=== PATIENT | male | born 1985 | race Caucasian/White ===

== ENCOUNTER 2017-10-20 14:18 | Inpatient (IN) | payer MEDICAID, SELFPAY ==
[~2017-10-20] VITALS: Ht 180.3 cm; Wt 74.5 kg
[2017-10-20 15:18] LABS: MEAN CORPUSCULAR HEMOGLOBIN 30.1 pg (27.0-33.0); MEAN CORPUSCULAR HGB CONC 32.8 g/dl (32.0-36.5); MEAN CORPUSCULAR VOLUME 91.7 fl (80.0-96.0); PLATELET COUNT, AUTOMATED 285 10^3/uL (150-450); RED CELL DISTRIBUTION WIDTH 12.6 % (11.5-14.5); WHITE BLOOD COUNT 9.4 10^3/uL (4.0-10.0)
[2017-10-20 15:42] LABS: METHADONE URINE NEGATIVE (NEGATIVE)
[2017-10-20 15:54] LABS: ALBUMIN/GLOBULIN RATIO 1.11 (1.00-1.93); ALKALINE PHOSPHATASE 127 U/L (45-117); ALT/SGPT 18 U/L (12-78); ANION GAP 8 MEQ/L (8-16); AST/SGOT 6 U/L (7-37); BILIRUBIN,DIRECT < 0.1 MG/DL (0.0-0.2); BILIRUBIN,TOTAL 0.2 MG/DL (0.2-1.0); BLOOD UREA NITROGEN 15 MG/DL (7-18); CARBON DIOXIDE LEVEL 28 MEQ/L (21-32); CHLORIDE LEVEL 108 MEQ/L (98-107); CREATININE FOR GFR 0.92 MG/DL (0.70-1.30); GLOMERULAR FILTRATION RATE > 60.0 (>60); GLUCOSE, FASTING 108 MG/DL (70-105); POTASSIUM SERUM 4.1 MEQ/L (3.5-5.1); SODIUM LEVEL 144 MEQ/L (136-145); TOTAL PROTEIN 7.6 GM/DL (6.4-8.2)
[2017-10-20] MEDS ORDERED: OLANZapine ORAL DISINTEGRATING TAB 5MG PO PRN (16:45)
[2017-10-20] MEDS ORDERED: ACETAMINOPHEN TAB 650MG DOSE (2X325MG) PO PRN (16:45)
[2017-10-20] MEDS ORDERED: MAALOX 30 ML SUSP *UDC PO PRN (16:45)
[2017-10-20] MEDS ORDERED: traZODone 50 MG TAB PO PRN (16:45)
[2017-10-20] MEDS ORDERED: MOM 30ML SUSPENSION UDC PO PRN (16:45)
[2017-10-20] MEDS ORDERED: hydrOXYzine 50 MG TAB PO PRN (16:45)
[2017-10-20 18:38] VITALS: BP 145/67
[2017-10-20] MEDS: PALIPERIDONE 3 MG ER TAB (INVEGA) PO SCH (21:40)
[2017-10-21 06:39] VITALS: BP 127/60
[2017-10-21] MEDS: PALIPERIDONE 3 MG ER TAB (INVEGA) PO SCH (09:13)
[2017-10-21] MEDS: risperiDONE 1 MG TAB PO SCH ×2 (12:46→22:02)
--- NOTE | 2017-10-21 16:05 | MHHPE ---
DATE OF ADMISSION: 10/20/2017 LEGAL STATUS AT ADMISSION: 9.39 legal status. CHIEF COMPLAINT: "I have Lyme disease". HISTORY OF PRESENT ILLNESS: 32-year-old male without prior psychiatric history admitted to our unit on a 9.39 legal status. According to the record, the patient was brought to the emergency department by his ict help desk officer. The patient was not showing up for his probation appointments. He was found at home not showering he has been released from custodial. Isolating. No eating. Avoiding his family. The patient was talking about "special ability and sensitive hearing", saying that he could hear computer noises, that he could hear and feel his blood be pulled out of his veins. During the interview with me he was talking about binaural noise and being sensitive to noise coming from different directions. The patient up being jailed after an altercation with his brother who has schizophrenia. He did not show for his parole office meetings and he was sent back to custodial for two more months. He was released in August 2017. During the interview today, the patient reports not feeling depressed. The patient says that he has low self-esteem, but is "bad during the winter and comes back at summer time". The patient reports that he cannot sleep at night "I do not feel fatigue". The patient has a descriptions and somatization, explaining why he has Lyme disease. He also said that he felt that he had Lewy-Body dementia but then he says that he maybe does not have this illness. He talks about itchy, burning, tingling in the center of the chest. A burning feeling in my neck. Severe pain in my arms and in my armpits. 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 The patient says that he has been punching the floor to prevent the tingling sensation on his hands. He denies feelings of paranoia. He denies auditory or visual hallucinations in the shape of voices. Denies command auditory hallucinations. 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 PAST MEDICAL HISTORY: The patient is not reliable as is somatizing and coming with theories of different diseases that he may have. PAST PSYCHIATRIC HISTORY: The patient denies any psychiatric problems. This is his first admission to our unit. FAMILY HISTORY: The patient reports his brother has been diagnosed with schizophrenia. SUBSTANCE ABUSE HISTORY: The patient denies any current or past problems with drugs or alcohol. SOCIAL HISTORY: It is difficult to obtain since the patient is very tangential. The patient says that he was raised by his parents and lives with his mother and brother. PSYCHIATRIC REVIEW OF SYMPTOMS: Substance abuse: The patient answers negative to each questionnaires. Anxiety disorder: The patient denies. Panic symptoms/agoraphobia, obsessive-compulsive disorder (OCD), washing hands repeatedly, checking things over and over, eating disorders, 4:54, dieting, use of laxatives, eating in binges: Negative. Cognitive disorder: 5;01 memory, attention, concentration and general information: Negative for cognitive problems. PHYSICAL EXAMINATION: As per physician assistant dean. LABS: CBC within normal limits. CMP is unremarkable, except alkaline phosphatase of 127. UDS is positive for cannabis. Blood alcohol level is negative. MENTAL STATUS EXAM: The patient dressed in [facility]. The patient is cooperative. His speech is soft and monotone. Has poor eye contact. Mood is anxious. Affect is blunted. The patient is oriented to time, place, person and situation. Attention and concentration are fair. The patient reports auditory hallucinations. Denies visual hallucinations. The patient has somatic delusions. Denies paranoid feelings. The patient denies suicidal or homicidal ideation. Judgment and insight is poor. ASSESSMENT: Wisdom I: Unspecified psychotic disorder. Rule out major depression with psychotic features. Rule out substance induced mood disorder. Rule out substance induced psychosis. Wisdom II: Deferred. Wisdom III: None acute. INITIAL TREATMENT PLAN: The patient was admitted on a 9.39 legal status. Complete history of obtained. With his permission, the family will be contacted and data base will be expanded. His medication regime will be reviewed and changed accordingly. He will be provided with protected environment. He will be treated with individual, group and milieu therapy. He will also receive psychoeducation. Discharge planning will commence immediately. Length of stay will be between 7 and 10 days. Outpatient followup will be strongly recommended. The treatment plan will focus initially on altered thoughts, altered perceptions, self-care deficit.
[2017-10-21 18:00] VITALS: BP 133/59
[2017-10-21] MEDS ORDERED: QUEtiapine FUMARATE 100 MG TAB PO SCH (21:00)
[2017-10-22 06:40] VITALS: BP 128/74
[2017-10-22] MEDS: risperiDONE 1 MG TAB PO SCH ×2 (08:10→21:44)
--- NOTE | 2017-10-22 11:51 | MHIPNPDOC ---
[facility] Progress Note Progress Note DATE OF SERVICE: 10/22/17 HISTORY: Patient states that he wakes up several times throughout the night, having "dreams" of voices. Denies CAH, denies SI/HI intent and plan. Did not endorse feeling depressed, did not endorse hyperactivity, hyperverbality, or elation. Patient states that he has telepathic abilities, believes he can hear electricity, admits that these perceptions confused him but he does not believe it is schizophrenia. Patient has had these symptoms for 3 years but has never sought treatment. Denies AVH, denies paranoia, denies delusions. Patient states he was not showering or taking care of himself at home, which alarmed his textile technical officer, who requested to bring him into the hospital. 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 Brother has schizophrenia. Incarcerated for violating probation, for assaulting brother. MJ several times a month, abused ETOH until age 27. Lives with mother and brother. VITAL SIGNS: See below. NEW TEST RESULTS: NA CURRENT MEDICATIONS: See below. MENTAL STATUS EXAMINATION: Behavior: calm, cooperative, intermittent eye contact Speech: normal RRV, restricted tone Thought processes including: linear Thought content: appropriate to conversation Judgment: fair Insight: poor Orientation: grossly oriented Mood: OK. Affect: neutral, restricted range DIAGNOSES: 1. schizophrenia ASSESSMENT Patient appears to have a mild schizophrenia, with mildly disorganized behaviors , some negative symptoms (lack of volition), delusions, and psychotic perceptions. MANAGEMENT PLAN: - Continue risperdal 1 mg BID for psychosis - PRNs: tylenol, MOM, mylanta, trazodone - Haldol 5 mg po q6 PRN for agitation TIME SPENT: 25 minutes. Vital Signs Vital Signs Date Time Temp Pulse Resp B/P (MAP) Pulse Ox O2 Delivery O2 Flow Rate FiO2 10/22/17 06:40 98.6 100 16 128/74 (92) 10/21/17 09:54 Room Air 10/20/17 18:38 99 Current Medications Current Medications Acetaminophen (Tylenol Tab) 650 mg Q6HP PRN PO HEADACHE or DISCOMFORT; Start 10/20/17 at 16:45; Stop 11/19/17 at 16:44 Al Hydrox/Mg Hydrox/Simethicone (Mylanta) 30 ml Q4HP PRN PO HEARTBURN/ INDIGESTION; Start 10/20/17 at 16:45; Stop 11/19/17 at 16:44 Home Med (Med Rec Complete!) ASDIRECTED XX ; Start 10/20/17 at 17:00; Stop 10/20/17 at 17:00; Status DC Hydroxyzine HCl (Atarax) 50 mg Q6HP PRN PO ANXIETY; Start 10/20/17 at 16:45; Stop 11/19/17 at 16:44 Magnesium Hydroxide (Milk Of Magnesia) 30 ml DAILYPRN PRN PO CONSTIPATION; Start 10/20/17 at 16:45; Stop 11/19/17 at 16:44 Olanzapine (ZyPREXA ZYDIS) 5 mg Q4HP PRN PO AGITATION; Start 10/20/17 at 16 :45; Stop 11/19/17 at 16:44 Paliperidone (Invega) 3 mg BID PO Last administered on 10/21/17 09:13; Start 10/20/17 at 21:00; Stop 10/21/17 at 11:23; Status DC Quetiapine Fumarate (SEROquel) 100 mg QHS PO Last administered on 10/21/17 22: 02; Start 10/21/17 at 21:00; Stop 11/20/17 at 20:59 Risperidone (RisperDAL) 1 mg BID PO Last administered on 10/22/17 08:10; Start 10/21/17 at 09:00; Stop 11/20/17 at 08:59 Trazodone HCl (Desyrel) 50 mg QHSP PRN PO INSOMNIA; Start 10/20/17 at 16:45; Stop 11/19/17 at 16:44 Allergies Coded Allergies: FRUIT (Verified Allergy, Mild, mouth itching, 10/20/17) EDNA POWELL MD Oct 22, 2017 11:51
[2017-10-22] MEDS ORDERED: HALOPERIDOL 5 MG TAB PO PRN (12:00)
[2017-10-22 18:00] VITALS: BP 145/71
[2017-10-23 06:50] VITALS: BP 124/68
[2017-10-23] MEDS: risperiDONE 1 MG TAB PO SCH ×2 (08:11→20:24)
--- NOTE | 2017-10-23 09:17 | MHIPNPDOC ---
[facility] Progress Note Progress Note DATE OF SERVICE: 10/23/17 HISTORY: Patient states that he is tolerating the risperdal without side effects. States that his level of psychotic perceptions is about the same ( perceptions of being able to hear electricity or have telepathic abilities). Patient wakes up intermittently throughout the night due to noise on the unit. Did not endorse depression, SI intent and plan. Patient complains of joint pain in different joints, gives history of knee joint swelling up, makes several remarks about how he believes he has Lyme disease. VITAL SIGNS: See below. NEW TEST RESULTS: NA CURRENT MEDICATIONS: See below. MENTAL STATUS EXAMINATION: Behavior: cooperative, calm, moderate eye contact Speech: quiet, restricted tone, normal rate Thought processes including: linear Thought content: appropriate to conversation Judgment: fair Insight: fair Orientation: AAOX3 Mood: OK Affect: neutral, restricted range DIAGNOSES: 1. schizophrenia ASSESSMENT Patient appears to have a mild schizophrenia, with mildly disorganized behaviors , some negative symptoms (lack of volition), delusions, and psychotic perceptions. Will see whether patient's symptoms mitigate with risperdal. MANAGEMENT PLAN: - Continue risperdal 1 mg BID for psychosis - Lyme disease screen - PRNs: tylenol, MOM, mylanta, trazodone - Haldol 5 mg po q6 PRN for agitation TIME SPENT: 25 minutes. Vital Signs Vital Signs Date Time Temp Pulse Resp B/P (MAP) Pulse Ox O2 Delivery O2 Flow Rate FiO2 10/23/17 08:36 Room Air 10/23/17 06:50 98.1 72 16 124/68 (86) 10/20/17 18:38 99 Current Medications Current Medications Acetaminophen (Tylenol Tab) 650 mg Q6HP PRN PO HEADACHE or DISCOMFORT; Start 10/20/17 at 16:45; Stop 11/19/17 at 16:44 Al Hydrox/Mg Hydrox/Simethicone (Mylanta) 30 ml Q4HP PRN PO HEARTBURN/ INDIGESTION; Start 10/20/17 at 16:45; Stop 11/19/17 at 16:44 Haloperidol (Haldol) 5 mg Q6HP PRN PO AGITATION; Start 10/22/17 at 12:00; Stop 11/21/17 at 11:59 Home Med (Med Rec Complete!) ASDIRECTED XX ; Start 10/20/17 at 17:00; Stop 10/20/17 at 17:00; Status DC Hydroxyzine HCl (Atarax) 50 mg Q6HP PRN PO ANXIETY; Start 10/20/17 at 16:45; Stop 11/19/17 at 16:44 Magnesium Hydroxide (Milk Of Magnesia) 30 ml DAILYPRN PRN PO CONSTIPATION; Start 10/20/17 at 16:45; Stop 11/19/17 at 16:44 Olanzapine (ZyPREXA ZYDIS) 5 mg Q4HP PRN PO AGITATION; Start 10/20/17 at 16 :45; Stop 10/22/17 at 11:50; Status DC Paliperidone (Invega) 3 mg BID PO Last administered on 10/21/17 09:13; Start 10/20/17 at 21:00; Stop 10/21/17 at 11:23; Status DC Quetiapine Fumarate (SEROquel) 100 mg QHS PO Last administered on 10/21/17 22: 02; Start 10/21/17 at 21:00; Stop 10/22/17 at 11:50; Status DC Risperidone (RisperDAL) 1 mg BID PO Last administered on 10/23/17 08:11; Start 10/21/17 at 09:00; Stop 11/20/17 at 08:59 Trazodone HCl (Desyrel) 50 mg QHSP PRN PO INSOMNIA; Start 10/20/17 at 16:45; Stop 11/19/17 at 16:44 Allergies Coded Allergies: FRUIT (Verified Allergy, Mild, mouth itching, 10/20/17) EDNA POWELL MD Oct 23, 2017 09:17
--- NOTE | 2017-10-23 11:39 | HPE ---
DATE OF ADMISSION: 10/20/2017 Please refer to the psychiatric history and evaluation for further details on this admission. This examination and history is intended for medical issues which may need treatment, followup or consultation on this 32-year-old male. ALLERGIES: FRUIT. PRIMARY CARE PROVIDER: He has none currently. SOCIAL HISTORY: Single. He drinks about once a month. Smokes - one pack of cigarettes per day. Recreational drug use - none. PAST MEDICAL HISTORY: Negative. PAST SURGICAL HISTORY: Negative. HOME MEDICATIONS: None. LABORATORY STUDIES: CBC was normal. Sodium 144, potassium 4.1, chloride 108, CO2 28, BUN 15, creatinine 0.9. Urine was positive for marijuana. FAMILY HISTORY: Noncontributory. REVIEW OF SYSTEMS: Ten systems review was done and his only complaint was a plantar wart in the middle of his left foot. PHYSICAL EXAMINATION: 32-year-old cooperative male in no acute distress. Height 71 inches. Weight 74.5 kg. Body mass index (BMI) 22.9. Blood pressure 128/74. Pulse 78. Respirations 16. Temperature 98.6. The patient is alert and oriented times three. Pupils equal and react to light. Extraocular movements intact. Cornea and sclera clear. Conjunctiva normal. No facial asymmetry. Pharynx, tongue and gums pink and moist. Tongue is midline. Neck is supple, without lymphadenopathy. No thyromegaly. No goiter. Carotids 2+, without bruit. Chest clear to auscultation, without wheeze or retraction. Heart is regular. Abdomen benign. Bowel sounds positive. Genitourinary ()/Rectal: Not done. Extremities show equal strength, full range of motion. No cyanosis, clubbing or edema. Peripheral pulses equal and palpable bilaterally. Skin is warm and dry. Large plantar wart noted in the ball of the left foot. IMPRESSION AND PLAN: 1. Psychiatric. Plan per psychiatry. 2. Patient will need to be set up with a primary care provider for followup as an outpatient. 3. Baseline electrocardiogram (EKG) will be ordered.
[2017-10-23 18:00] VITALS: BP 144/62
[2017-10-24 06:00] VITALS: BP 138/77
--- NOTE | 2017-10-24 08:25 | REP ---
MRI brain without contrast: History: First psychotic episode . Comparison study: No comparison study. Technique: Axial and sagittal imaging planes are utilized for T1 and T2-weighted scans. Sequences include spin-echo, fast spin echo, FLAIR, and diffusion weighted sequences. MRI findings: No bony calvarial lesion is seen. Craniocervical junction and upper cervical cord are normal in appearance. There is no MR evidence of significant paranasal sinus disease. No intraorbital abnormality is seen. The lateral, third, and fourth ventricles are normal in size and position. Dewey-white differentiation pattern is intact above and below the tentorium. There is no evidence of intracranial hemorrhage. No mass, infarction, extra-axial fluid collection or midline shift is seen. No abnormal white matter lesion is seen. Impression: Negative noncontrast brain MRI study. Signed by Barrera May MD 10/24/2017 08:17 A
[2017-10-24] MEDS: risperiDONE 1 MG TAB PO SCH (08:49)
--- NOTE | 2017-10-24 12:18 | MHIPNPDOC ---
[facility] Progress Note Progress Note DATE OF SERVICE: 10/24/17 HISTORY: Patient states that he still has the perception that he can hear electronics. Denies AVH, paranoia, and SI intent and plan. States that he has been feeling slightly more motivated than admission, has been showering, grooming, and eating. VITAL SIGNS: See below. NEW TEST RESULTS: pending Lyme screen CURRENT MEDICATIONS: See below. MENTAL STATUS EXAMINATION: Behavior: calm, cooperative, related but withdrawn Speech: normal RRVT Thought processes including: linear Thought content: appropriate to conversation Judgment: fair Insight: fair Orientation: AAOX3 Mood: OK. Affect: neutral, restricted range DIAGNOSES: 1. schizophrenia ASSESSMENT Patient appears to have a mild schizophrenia, improving disorganized behaviors and negative symptoms (lack of volition), delusions, and psychotic perceptions. Will see whether patient's symptoms mitigate with risperdal. MANAGEMENT PLAN: - Increase risperdal to 1 mg qam 2 mg qhs for psychosis - Lyme disease screen pending - PRNs: tylenol, MOM, mylanta, trazodone - Haldol 5 mg po q6 PRN for agitation TIME SPENT: 25 minutes. Vital Signs Vital Signs Date Time Temp Pulse Resp B/P (MAP) Pulse Ox O2 Delivery O2 Flow Rate FiO2 10/24/17 06:00 98.0 64 14 138/77 (97) 10/23/17 08:36 Room Air 10/20/17 18:38 99 Current Medications Current Medications Acetaminophen (Tylenol Tab) 650 mg Q6HP PRN PO HEADACHE or DISCOMFORT; Start 10/20/17 at 16:45; Stop 11/19/17 at 16:44 Al Hydrox/Mg Hydrox/Simethicone (Mylanta) 30 ml Q4HP PRN PO HEARTBURN/ INDIGESTION; Start 10/20/17 at 16:45; Stop 11/19/17 at 16:44 Haloperidol (Haldol) 5 mg Q6HP PRN PO AGITATION; Start 10/22/17 at 12:00; Stop 11/21/17 at 11:59 Home Med (Med Rec Complete!) ASDIRECTED XX ; Start 10/20/17 at 17:00; Stop 10/20/17 at 17:00; Status DC Hydroxyzine HCl (Atarax) 50 mg Q6HP PRN PO ANXIETY; Start 10/20/17 at 16:45; Stop 11/19/17 at 16:44 Magnesium Hydroxide (Milk Of Magnesia) 30 ml DAILYPRN PRN PO CONSTIPATION; Start 10/20/17 at 16:45; Stop 11/19/17 at 16:44 Olanzapine (ZyPREXA ZYDIS) 5 mg Q4HP PRN PO AGITATION; Start 10/20/17 at 16 :45; Stop 10/22/17 at 11:50; Status DC Paliperidone (Invega) 3 mg BID PO Last administered on 10/21/17 09:13; Start 10/20/17 at 21:00; Stop 10/21/17 at 11:23; Status DC Quetiapine Fumarate (SEROquel) 100 mg QHS PO Last administered on 10/21/17 22: 02; Start 10/21/17 at 21:00; Stop 10/22/17 at 11:50; Status DC Risperidone (RisperDAL) 1 mg BID PO Last administered on 10/24/17 08:49; Start 10/21/17 at 09:00; Stop 11/20/17 at 08:59 Trazodone HCl (Desyrel) 50 mg QHSP PRN PO INSOMNIA; Start 10/20/17 at 16:45; Stop 11/19/17 at 16:44 Allergies Coded Allergies: FRUIT (Verified Allergy, Mild, mouth itching, 10/20/17) EDNA POWELL MD Oct 24, 2017 12:18
[2017-10-24 18:00] VITALS: BP 123/60
[2017-10-24] MEDS: risperiDONE 2 MG TAB PO SCH (21:00)
--- NOTE | 2017-10-25 01:20 | ECGEPIP ---
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
[2017-10-25 07:00] VITALS: BP 143/73
[2017-10-25] MEDS: risperiDONE 1 MG TAB PO SCH (08:20)
[2017-10-25 18:20] VITALS: BP 152/70
[2017-10-25] MEDS: risperiDONE 2 MG TAB PO SCH (21:12)
[2017-10-26 00:10] LABS: Lyme Disease IgG/IgM Antibodie <0.91 ISR (0.00-0.90); Lyme Disease IgM Ab Quantitati <0.80 index (0.00-0.79)
[2017-10-26 06:43] VITALS: BP 133/63
[2017-10-26] MEDS: risperiDONE 1 MG TAB PO SCH (08:30)
--- NOTE | 2017-10-26 14:48 | MHIPNPDOC ---
[facility] Progress Note Progress Note DATE OF SERVICE: 10/26/17 HISTORY: Patient states that he still has auditory perceptions of hearing electricity through the wires, though they are not as pronounced as before admission. Patient states the increased dose of risperdal makes him a little sleepy, denies feeling his AH being any different since he was on 1 mg. Patient states in the past he has had VH of things waving around. Denies current VH. States his mood is a little depressed from being in the hospital, did not endorse SI intent and plan. VITAL SIGNS: See below. NEW TEST RESULTS: NA CURRENT MEDICATIONS: See below. MENTAL STATUS EXAMINATION: Behavior: calm, cooperative, related but withdrawn Speech: normal RRVT Thought processes including: linear Thought content: appropriate to conversation Judgment: fair Insight: fair Orientation: AAOX3 Mood: a little depressed. Affect: dysthymic, restricted range DIAGNOSES: 1. schizophrenia ASSESSMENT Patient appears to have a mild schizophrenia, improving disorganized behaviors and negative symptoms (lack of volition), delusions, and psychotic perceptions. Patient does not present any differently when on 2 mg vs 3 mg total per day. MANAGEMENT PLAN: - Decrease risperdal to 2 mg qhs for psychosis, begin zyprexa 5 mg qhs - Lyme disease screen negative - PRNs: tylenol, MOM, mylanta, trazodone - Haldol 5 mg po q6 PRN for agitation TIME SPENT: 25 minutes. Vital Signs Vital Signs Date Time Temp Pulse Resp B/P (MAP) Pulse Ox O2 Delivery O2 Flow Rate FiO2 10/26/17 08:15 Room Air 10/26/17 06:43 98.5 65 18 133/63 (86) 10/20/17 18:38 99 Current Medications Current Medications Acetaminophen (Tylenol Tab) 650 mg Q6HP PRN PO HEADACHE or DISCOMFORT; Start 10/20/17 at 16:45; Stop 11/19/17 at 16:44 Al Hydrox/Mg Hydrox/Simethicone (Mylanta) 30 ml Q4HP PRN PO HEARTBURN/ INDIGESTION; Start 10/20/17 at 16:45; Stop 11/19/17 at 16:44 Haloperidol (Haldol) 5 mg Q6HP PRN PO AGITATION; Start 10/22/17 at 12:00; Stop 11/21/17 at 11:59 Home Med (Med Rec Complete!) ASDIRECTED XX ; Start 10/20/17 at 17:00; Stop 10/20/17 at 17:00; Status DC Hydroxyzine HCl (Atarax) 50 mg Q6HP PRN PO ANXIETY; Start 10/20/17 at 16:45; Stop 11/19/17 at 16:44 Magnesium Hydroxide (Milk Of Magnesia) 30 ml DAILYPRN PRN PO CONSTIPATION; Start 10/20/17 at 16:45; Stop 11/19/17 at 16:44 Olanzapine (ZyPREXA ZYDIS) 5 mg Q4HP PRN PO AGITATION; Start 10/20/17 at 16 :45; Stop 10/22/17 at 11:50; Status DC Paliperidone (Invega) 3 mg BID PO Last administered on 10/21/17 09:13; Start 10/20/17 at 21:00; Stop 10/21/17 at 11:23; Status DC Quetiapine Fumarate (SEROquel) 100 mg QHS PO Last administered on 10/21/17 22: 02; Start 10/21/17 at 21:00; Stop 10/22/17 at 11:50; Status DC Risperidone (RisperDAL) 1 mg BID PO Last administered on 10/24/17 08:49; Start 10/21/17 at 09:00; Stop 10/24/17 at 12:14; Status DC Risperidone (RisperDAL) 1 mg DAILY PO Last administered on 10/26/17 08:30; Start 10/25/17 at 09:00; Stop 11/24/17 at 08:59 Risperidone (RisperDAL) 2 mg QHS PO Last administered on 10/25/17 21:12; Start 10/24/17 at 21:00; Stop 11/23/17 at 20:59 Trazodone HCl (Desyrel) 50 mg QHSP PRN PO INSOMNIA; Start 10/20/17 at 16:45; Stop 11/19/17 at 16:44 Allergies Coded Allergies: FRUIT (Verified Allergy, Mild, mouth itching, 10/20/17) EDNA POWELL MD Oct 26, 2017 14:48
[2017-10-26 18:00] VITALS: BP 108/61
[2017-10-26] MEDS: OLANZapine 5 MG TAB PO SCH (20:02)
[2017-10-26] MEDS: risperiDONE 2 MG TAB PO SCH (20:02)
[2017-10-27 06:58] VITALS: BP 146/62
--- NOTE | 2017-10-27 13:13 | MHIPNPDOC ---
[facility] Progress Note Progress Note DATE OF SERVICE: 10/27/17 HISTORY: Patient still having abnormal perceptions of "hearing electricity", reports not change in symptoms since being on risperdal 2 mg qhs. Patient further mentions a nightly feeling a pain all over his body, unable to characterize, somewhat of a dull, nerve pain. Patient is unsure whether the pain is real or a part of his psychosis. Patient states that at night he would wake up from this, but the zyprexa last night allowed him to sleep throughout the entire night without the feeling of pain. Did not endorse depression. VITAL SIGNS: See below. NEW TEST RESULTS: NA CURRENT MEDICATIONS: See below. MENTAL STATUS EXAMINATION: Behavior: calm, cooperative, related but withdrawn Speech: normal RRVT Thought processes including: linear Thought content: appropriate to conversation Judgment: fair Insight: fair Orientation: AAOX3 Mood: OK. Affect: dysthymic, restricted range DIAGNOSES: 1. schizophrenia ASSESSMENT Patient's disorganized behaviors have largely been resolve with medication, but he is still having abnormal, psychotic perceptions. MANAGEMENT PLAN: - Decrease risperdal to 1 mg qhs for psychosis, Increase zyprexa to 5 mg BID - PRNs: tylenol, MOM, mylanta, trazodone - Haldol 5 mg po q6 PRN for agitation TIME SPENT: 25 minutes. Vital Signs Vital Signs Date Time Temp Pulse Resp B/P (MAP) Pulse Ox O2 Delivery O2 Flow Rate FiO2 10/27/17 06:58 97.2 62 20 146/62 (90) 10/26/17 08:15 Room Air Current Medications Current Medications Acetaminophen (Tylenol Tab) 650 mg Q6HP PRN PO HEADACHE or DISCOMFORT; Start 10/20/17 at 16:45; Stop 11/19/17 at 16:44 Al Hydrox/Mg Hydrox/Simethicone (Mylanta) 30 ml Q4HP PRN PO HEARTBURN/ INDIGESTION; Start 10/20/17 at 16:45; Stop 11/19/17 at 16:44 Haloperidol (Haldol) 5 mg Q6HP PRN PO AGITATION; Start 10/22/17 at 12:00; Stop 11/21/17 at 11:59 Home Med (Med Rec Complete!) ASDIRECTED XX ; Start 10/20/17 at 17:00; Stop 10/20/17 at 17:00; Status DC Hydroxyzine HCl (Atarax) 50 mg Q6HP PRN PO ANXIETY; Start 10/20/17 at 16:45; Stop 11/19/17 at 16:44 Magnesium Hydroxide (Milk Of Magnesia) 30 ml DAILYPRN PRN PO CONSTIPATION; Start 10/20/17 at 16:45; Stop 11/19/17 at 16:44 Olanzapine (ZyPREXA ZYDIS) 5 mg Q4HP PRN PO AGITATION; Start 10/20/17 at 16 :45; Stop 10/22/17 at 11:50; Status DC Olanzapine (ZyPREXA) 5 mg QHS PO Last administered on 10/26/17 20:02; Start 10/26/17 at 21:00; Stop 11/25/17 at 20:59 Paliperidone (Invega) 3 mg BID PO Last administered on 10/21/17 09:13; Start 10/20/17 at 21:00; Stop 10/21/17 at 11:23; Status DC Quetiapine Fumarate (SEROquel) 100 mg QHS PO Last administered on 10/21/17 22: 02; Start 10/21/17 at 21:00; Stop 10/22/17 at 11:50; Status DC Risperidone (RisperDAL) 1 mg BID PO Last administered on 10/24/17 08:49; Start 10/21/17 at 09:00; Stop 10/24/17 at 12:14; Status DC Risperidone (RisperDAL) 1 mg DAILY PO Last administered on 10/26/17 08:30; Start 10/25/17 at 09:00; Stop 10/26/17 at 14:49; Status DC Risperidone (RisperDAL) 2 mg QHS PO Last administered on 10/26/17 20:02; Start 10/24/17 at 21:00; Stop 11/23/17 at 20:59 Trazodone HCl (Desyrel) 50 mg QHSP PRN PO INSOMNIA; Start 10/20/17 at 16:45; Stop 11/19/17 at 16:44 Allergies Coded Allergies: FRUIT (Verified Allergy, Mild, mouth itching, 10/20/17) EDNA POWELL MD Oct 27, 2017 13:13
[2017-10-27] MEDS ORDERED: OLANZapine 5 MG TAB PO ONE (13:30)
[2017-10-27 18:00] VITALS: BP 121/60
[2017-10-27] MEDS ORDERED: risperiDONE 1 MG TAB PO SCH (21:00)
[2017-10-27] MEDS: OLANZapine 5 MG TAB PO SCH (21:06)
[2017-10-28 06:52] VITALS: BP 133/66
[2017-10-28] MEDS ORDERED: GABAPENTIN 100 MG CAP PO ONE (09:15)
--- NOTE | 2017-10-28 09:19 | MHIPNPDOC ---
[facility] Progress Note Progress Note DATE OF SERVICE: 10/28/17 HISTORY: Patient states that he still has the perceptions of hearing electricity , and describes perceptions of having nerve pain intermittently all across his body (which he has had for a long time but is describing more in detail today). Associates this nerve pain with stress and anxiety. Believes the zyprexa helped him sleep better but thinks his perceptions are at about the same level. Has alright mood, did not endorse SI intent and plan, did not endorse AVH. VITAL SIGNS: See below. NEW TEST RESULTS: na CURRENT MEDICATIONS: See below. CURRENT MEDICATIONS: See below. MENTAL STATUS EXAMINATION: Behavior: calm, cooperative, related but withdrawn Speech: normal RRVT Thought processes including: linear Thought content: appropriate to conversation Judgment: fair Insight: fair Orientation: AAOX3 Mood: alright Affect: dysthymic, restricted range DIAGNOSES: 1. schizophrenia ASSESSMENT Patient's disorganized behaviors have largely been resolve with medication, but he is still having abnormal, psychotic perceptions. His "nerve pain" is likely another psychotic perceptual disturbance, but may be mitigated by reducing his anxiety level. MANAGEMENT PLAN: - Risperdal discontinued for psychosis, Increase zyprexa to 10 mg qhs tomorrow - Began gabapentin 300 mg BID for anxiety, and to see if that decreases his "nerve pain" sensations. - PRNs: tylenol, MOM, mylanta, trazodone - Haldol 5 mg po q6 PRN for agitation TIME SPENT: 25 minutes. Vital Signs Vital Signs Date Time Temp Pulse Resp B/P (MAP) Pulse Ox O2 Delivery O2 Flow Rate FiO2 10/28/17 06:52 97.7 77 12 133/66 (88) 10/26/17 08:15 Room Air Current Medications Current Medications Acetaminophen (Tylenol Tab) 650 mg Q6HP PRN PO HEADACHE or DISCOMFORT; Start 10/20/17 at 16:45; Stop 11/19/17 at 16:44 Al Hydrox/Mg Hydrox/Simethicone (Mylanta) 30 ml Q4HP PRN PO HEARTBURN/ INDIGESTION; Start 10/20/17 at 16:45; Stop 11/19/17 at 16:44 Gabapentin (Neurontin) 300 mg BID PO ; Start 10/28/17 at 21:00; Stop 11/27/17 at 20:59; Status UNV Haloperidol (Haldol) 5 mg Q6HP PRN PO AGITATION; Start 10/22/17 at 12:00; Stop 11/21/17 at 11:59 Home Med (Med Rec Complete!) ASDIRECTED XX ; Start 10/20/17 at 17:00; Stop 10/20/17 at 17:00; Status DC Hydroxyzine HCl (Atarax) 50 mg Q6HP PRN PO ANXIETY; Start 10/20/17 at 16:45; Stop 11/19/17 at 16:44 Magnesium Hydroxide (Milk Of Magnesia) 30 ml DAILYPRN PRN PO CONSTIPATION; Start 10/20/17 at 16:45; Stop 11/19/17 at 16:44 Olanzapine (ZyPREXA ZYDIS) 5 mg Q4HP PRN PO AGITATION; Start 10/20/17 at 16 :45; Stop 10/22/17 at 11:50; Status DC Olanzapine (ZyPREXA) 5 mg QHS PO Last administered on 10/27/17 21:06; Start 10/26/17 at 21:00; Stop 11/25/17 at 20:59 Paliperidone (Invega) 3 mg BID PO Last administered on 10/21/17 09:13; Start 10/20/17 at 21:00; Stop 10/21/17 at 11:23; Status DC Quetiapine Fumarate (SEROquel) 100 mg QHS PO Last administered on 10/21/17 22: 02; Start 10/21/17 at 21:00; Stop 10/22/17 at 11:50; Status DC Risperidone (RisperDAL) 1 mg BID PO Last administered on 10/24/17 08:49; Start 10/21/17 at 09:00; Stop 10/24/17 at 12:14; Status DC Risperidone (RisperDAL) 1 mg DAILY PO Last administered on 10/26/17 08:30; Start 10/25/17 at 09:00; Stop 10/26/17 at 14:49; Status DC Risperidone (RisperDAL) 1 mg QHS PO Last administered on 10/27/17 21:07; Start 10/27/17 at 21:00; Stop 11/26/17 at 20:59 Risperidone (RisperDAL) 2 mg QHS PO Last administered on 10/26/17t 20:02; Start 10/24/17 at 21:00; Stop 10/27/17 at 13:10; Status DC Trazodone HCl (Desyrel) 50 mg QHSP PRN PO INSOMNIA; Start 10/20/17 at 16:45; Stop 11/19/17 at 16:44 Allergies Coded Allergies: FRUIT (Verified Allergy, Mild, mouth itching, 10/20/17) EDNA POWELL MD Oct 28, 2017 09:19
[2017-10-28 18:00] VITALS: BP 130/68
[2017-10-28] MEDS: GABAPENTIN 300 MG CAP PO SCH (20:12)
[2017-10-28] MEDS: OLANZapine 5 MG TAB PO SCH (20:12)
[2017-10-29 06:41] VITALS: BP 140/67
[2017-10-29] MEDS: GABAPENTIN 300 MG CAP PO SCH ×2 (09:50→20:46)
[2017-10-29 18:39] VITALS: BP 128/60
[2017-10-29] MEDS: OLANZapine 10 MG TAB PO SCH (20:46)
[2017-10-30 06:41] VITALS: BP 140/63
[2017-10-30] MEDS: GABAPENTIN 300 MG CAP PO SCH ×2 (09:39→20:58)
[2017-10-30 18:13] VITALS: BP 137/72
[2017-10-30] MEDS: OLANZapine 10 MG TAB PO SCH (20:58)
[2017-10-31 06:43] VITALS: BP 150/75
[2017-10-31] MEDS: GABAPENTIN 300 MG CAP PO SCH (08:05)
--- NOTE | 2017-10-31 17:18 | MHIPNPDOC ---
[facility] Progress Note Progress Note DATE OF SERVICE: 10/31/17 HISTORY: Patient reports good sleep time but had dream that woke him up. Reports feeling about the same with zyprexa compared to risperdal. Continues to have sensation of pains throughout his body. Does not currently report hearing electricity in wires, but heard this yesterday. Patient reports OK mood, did not endorse SI intent and plan. VITAL SIGNS: See below. NEW TEST RESULTS: NA CURRENT MEDICATIONS: See below. MENTAL STATUS EXAMINATION: Behavior: calm, cooperative, related but withdrawn Speech: normal RRVT Thought processes including: linear Thought content: appropriate to conversation Judgment: fair Insight: fair Orientation: AAOX3 Mood: OK Affect: dysthymic, restricted range DIAGNOSES: 1. schizophrenia ASSESSMENT Patient's disorganized behaviors have largely been resolve with medication, but he is still having abnormal, psychotic perceptions. His "nerve pain" is likely another psychotic perceptual disturbance. MANAGEMENT PLAN: - Continue zyprexa 10 mg qhs - Disontinue gabapentin 300 mg BID for anxiety - PRNs: tylenol, MOM, mylanta, trazodone - Haldol 5 mg po q6 PRN for agitation TIME SPENT: 25 minutes. Vital Signs Vital Signs Date Time Temp Pulse Resp B/P (MAP) Pulse Ox O2 Delivery O2 Flow Rate FiO2 10/31/17 06:43 97.7 69 16 150/75 (100) 10/29/17 06:41 Room Air Current Medications Current Medications Acetaminophen (Tylenol Tab) 650 mg Q6HP PRN PO HEADACHE or DISCOMFORT; Start 10/20/17 at 16:45; Stop 11/19/17 at 16:44 Al Hydrox/Mg Hydrox/Simethicone (Mylanta) 30 ml Q4HP PRN PO HEARTBURN/ INDIGESTION; Start 10/20/17 at 16:45; Stop 11/19/17 at 16:44 Gabapentin (Neurontin) 300 mg BID PO Last administered on 10/31/17t 08:05; Start 10/28/17 at 21:00; Stop 11/27/17 at 20:59 Haloperidol (Haldol) 5 mg Q6HP PRN PO AGITATION; Start 10/22/17 at 12:00; Stop 11/21/17 at 11:59 Home Med (Med Rec Complete!) ASDIRECTED XX ; Start 10/20/17 at 17:00; Stop 10/20/17 at 17:00; Status DC Hydroxyzine HCl (Atarax) 50 mg Q6HP PRN PO ANXIETY; Start 10/20/17 at 16:45; Stop 11/19/17 at 16:44 Magnesium Hydroxide (Milk Of Magnesia) 30 ml DAILYPRN PRN PO CONSTIPATION; Start 10/20/17 at 16:45; Stop 11/19/17 at 16:44 Olanzapine (ZyPREXA ZYDIS) 5 mg Q4HP PRN PO AGITATION; Start 10/20/17 at 16 :45; Stop 10/22/17 at 11:50; Status DC Olanzapine (ZyPREXA) 5 mg QHS PO Last administered on 10/28/17 20:12; Start 10/26/17 at 21:00; Stop 10/29/17 at 04:00; Status DC Olanzapine (ZyPREXA) 10 mg QHS PO Last administered on 10/30/17 20:58; Start 10/29/17 at 21:00; Stop 11/28/17 at 20:59 Paliperidone (Invega) 3 mg BID PO Last administered on 10/21/17 09:13; Start 10/20/17 at 21:00; Stop 10/21/17 at 11:23; Status DC Quetiapine Fumarate (SEROquel) 100 mg QHS PO Last administered on 10/21/17 22: 02; Start 10/21/17 at 21:00; Stop 10/22/17 at 11:50; Status DC Risperidone (RisperDAL) 1 mg BID PO Last administered on 10/24/17 08:49; Start 10/21/17 at 09:00; Stop 10/24/17 at 12:14; Status DC Risperidone (RisperDAL) 1 mg DAILY PO Last administered on 10/26/17 08:30; Start 10/25/17 at 09:00; Stop 10/26/17 at 14:49; Status DC Risperidone (RisperDAL) 1 mg QHS PO Last administered on 10/27/17 21:07; Start 10/27/17 at 21:00; Stop 10/28/17 at 09:21; Status DC Risperidone (RisperDAL) 2 mg QHS PO Last administered on 12/13/17at 20:02; Start 10/24/17 at 21:00; Stop 10/27/17 at 13:10; Status DC Trazodone HCl (Desyrel) 50 mg QHSP PRN PO INSOMNIA; Start 10/20/17 at 16:45; Stop 11/19/17 at 16:44 Allergies Coded Allergies: FRUIT (Verified Allergy, Mild, mouth itching, 10/20/17) EDNA POWELL MD Oct 31, 2017 17:18
[2017-10-31 18:00] VITALS: BP 156/67
[2017-10-31] MEDS: OLANZapine 10 MG TAB PO SCH (20:12)
[2017-11-01 06:28] VITALS: BP 140/65
--- NOTE | 2017-11-01 16:38 | MHIPNPDOC ---
[facility] Progress Note Progress Note DATE OF SERVICE: 11/01/17 HISTORY: Patient reports the same level of perceptual disturbances of hearing electricity and sensing body pains. Patient reports OK sleep with zyprexa. Believes the zyprexa helps him sleep better than risperdal but controls his symptoms at about the same level. Did not endorse other psychotic symptoms, OK mood. VITAL SIGNS: See below. NEW TEST RESULTS: NA CURRENT MEDICATIONS: See below. MENTAL STATUS EXAMINATION: Behavior: calm, cooperative, related but withdrawn Speech: normal RRVT Thought processes including: linear Thought content: appropriate to conversation Judgment: fair Insight: fair Orientation: AAOX3 Mood: OK Affect: dysthymic, restricted range DIAGNOSES: 1. schizophrenia ASSESSMENT Patient's disorganized behaviors have largely been resolve with medication, but he is still having abnormal, psychotic perceptions. His "nerve pain" is likely another psychotic perceptual disturbance. MANAGEMENT PLAN: - Continue zyprexa 10 mg qhs - Disontinue gabapentin 300 mg BID for anxiety - PRNs: tylenol, MOM, mylanta, trazodone - Haldol 5 mg po q6 PRN for agitation TIME SPENT: 25 minutes. Vital Signs Vital Signs Date Time Temp Pulse Resp B/P (MAP) Pulse Ox O2 Delivery O2 Flow Rate FiO2 11/01/17 06:28 98.5 67 16 140/65 (90) 10/29/17 06:41 Room Air Current Medications Current Medications Acetaminophen (Tylenol Tab) 650 mg Q6HP PRN PO HEADACHE or DISCOMFORT; Start 10/20/17 at 16:45; Stop 11/19/17 at 16:44 Al Hydrox/Mg Hydrox/Simethicone (Mylanta) 30 ml Q4HP PRN PO HEARTBURN/ INDIGESTION; Start 10/20/17 at 16:45; Stop 11/19/17 at 16:44 Gabapentin (Neurontin) 300 mg BID PO Last administered on 10/31/17t 08:05; Start 10/28/17 at 21:00; Stop 10/31/17 at 17:19; Status DC Haloperidol (Haldol) 5 mg Q6HP PRN PO AGITATION; Start 10/22/17 at 12:00; Stop 11/21/17 at 11:59 Home Med (Med Rec Complete!) ASDIRECTED XX ; Start 10/20/17 at 17:00; Stop 10/20/17 at 17:00; Status DC Hydroxyzine HCl (Atarax) 50 mg Q6HP PRN PO ANXIETY; Start 10/20/17 at 16:45; Stop 11/19/17 at 16:44 Magnesium Hydroxide (Milk Of Magnesia) 30 ml DAILYPRN PRN PO CONSTIPATION; Start 10/20/17 at 16:45; Stop 11/19/17 at 16:44 Olanzapine (ZyPREXA ZYDIS) 5 mg Q4HP PRN PO AGITATION; Start 10/20/17 at 16 :45; Stop 10/22/17 at 11:50; Status DC Olanzapine (ZyPREXA) 5 mg QHS PO Last administered on 10/28/17 20:12; Start 10/26/17 at 21:00; Stop 10/29/17 at 04:00; Status DC Olanzapine (ZyPREXA) 10 mg QHS PO Last administered on 10/31/17 20:12; Start 10/29/17 at 21:00; Stop 11/28/17 at 20:59 Paliperidone (Invega) 3 mg BID PO Last administered on 10/21/17 09:13; Start 10/20/17 at 21:00; Stop 10/21/17 at 11:23; Status DC Quetiapine Fumarate (SEROquel) 100 mg QHS PO Last administered on 10/21/17 22: 02; Start 10/21/17 at 21:00; Stop 10/22/17 at 11:50; Status DC Risperidone (RisperDAL) 1 mg BID PO Last administered on 10/24/17 08:49; Start 10/21/17 at 09:00; Stop 10/24/17 at 12:14; Status DC Risperidone (RisperDAL) 1 mg DAILY PO Last administered on 10/26/17 08:30; Start 10/25/17 at 09:00; Stop 10/26/17 at 14:49; Status DC Risperidone (RisperDAL) 1 mg QHS PO Last administered on 10/27/17 21:07; Start 10/27/17 at 21:00; Stop 10/28/17 at 09:21; Status DC Risperidone (RisperDAL) 2 mg QHS PO Last administered on 12/13/17at 20:02; Start 10/24/17 at 21:00; Stop 10/27/17 at 13:10; Status DC Trazodone HCl (Desyrel) 50 mg QHSP PRN PO INSOMNIA; Start 10/20/17 at 16:45; Stop 11/19/17 at 16:44 Allergies Coded Allergies: FRUIT (Verified Allergy, Mild, mouth itching, 10/20/17) EDNA POWELL MD Nov 01, 2017 16:38
[2017-11-01 18:00] VITALS: BP 128/62
[2017-11-01] MEDS: OLANZapine 10 MG TAB PO SCH (20:10)
[2017-11-02 07:00] VITALS: BP 136/66
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
[2017-11-02] MEDS ORDERED: TRAZO50TA PO (11:37)
[2017-11-02] MEDS ORDERED: OLAN10TA2 PO (11:37)
== END 2017-11-02 14:30 | disposition home or self-care (01) | DRG 751 ==
LOC: M ED 14:18 → M PSY 18:20
PROVIDERS: ADMIT Psychiatry & Neurology Psychiatry; ATTEND Psychiatry & Neurology Psychiatry
DX: F29 Unspecified psychosis not due to a substance or known physiological condition (principal); Z91.018 Allergy to other foods

== ENCOUNTER → 2018-08-16 | Outpatient (REF) | payer OTHER ==
[2018-08-16 14:15] LABS: CHOLESTEROL LEVEL 154 MG/DL (<200); CHOLESTEROL RISK RATIO 3.581 (<5); HDL CHOLESTEROL 43 MG/DL (>40); LDL CHOLESTEROL 85 MG/DL (<100); NON-HDL-C 111 MG/DL; TRIGLYCERIDES LEVEL 128 MG/DL (<150)
[2018-08-16 14:17] LABS: ESTIMATED AVERAGE GLUCOSE 123 MG/DL (60-110); HEMOGLOBIN A1c 5.9 %
== END ==
LOC: M SFHCPLAZ 11:20
DX: F03.90 Unspecified dementia, unspecified severity, without behavioral disturbance, psychotic disturbance, mood disturbance, and anxiety (principal)

== ENCOUNTER 2021-02-20 13:16 | Inpatient (IN) | payer MEDICAID, OTHER, SELFPAY ==
[~2021-02-20] VITALS: Ht 180.3 cm; Wt 65.3 kg
[~2021-02-20 13:16] MED LIST: OLAN10TA2 PO; TRAZ1TAB10 PO
[2021-02-20 13:55] LABS: HEMATOCRIT 39.2 % (42.0-52.0); HEMOGLOBIN 12.3 g/dl (13.5-17.5); MEAN CORPUSCULAR HGB CONC 31.4 g/dl (32.0-36.5); MEAN CORPUSCULAR VOLUME 95.6 fl (80.0-96.0); PLATELET COUNT, AUTOMATED 270 10^3/uL (150-450); WHITE BLOOD COUNT 11.7 10^3/uL (4.0-10.0)
[2021-02-20 14:20] LABS: AMPHETAMINES LEVEL URINE NEGATIVE (NEGATIVE); BARBITURATES URINE NEGATIVE (NEGATIVE); BENZODIAZEPINES URINE NEGATIVE (NEGATIVE); CANNABINOIDS URINE POSITIVE (NEGATIVE); COCAINE METABOLITE URINE NEGATIVE (NEGATIVE); METHADONE URINE NEGATIVE (NEGATIVE); OPIATES URINE NEGATIVE (NEGATIVE); PHENCYCLIDINE URINE NEGATIVE (NEGATIVE)
[2021-02-20 14:31] LABS: ACETAMINOPHEN LEVEL < 2.0 UG/ML (10.0-30.0); ALT/SGPT 27 U/L (12-78); BILIRUBIN,DIRECT 0.1 MG/DL (0.0-0.2); BILIRUBIN,TOTAL 0.3 MG/DL (0.2-1.0); BLOOD UREA NITROGEN 23 MG/DL (7-18); CALCIUM LEVEL 8.8 MG/DL (8.5-10.1); CARBON DIOXIDE LEVEL 18 MEQ/L (21-32); CHLORIDE LEVEL 107 MEQ/L (98-107); CREATININE FOR GFR 0.95 MG/DL (0.70-1.30); ETHYL ALCOHOL (ETHANOL) < 0.003 % (0.000-0.010); GLOMERULAR FILTRATION RATE > 60.0 (>60); GLUCOSE, FASTING 124 MG/DL (70-100); POTASSIUM SERUM 4.2 MEQ/L (3.5-5.1); SALICYLATE LEVEL 3.4 MG/DL (5.0-30.0); SODIUM LEVEL 138 MEQ/L (136-145); TOTAL PROTEIN 6.9 GM/DL (6.4-8.2)
[2021-02-20 15:12] LABS: RSV AMPLIFICATION NEGATIVE (NEGATIVE)
[2021-02-20] MEDS: OLANZapine ORAL DISINTEGRATING TAB 5MG PO ONE ×2 (17:13→17:14)
[2021-02-20] MEDS ORDERED: MOM 30ML SUSPENSION UDC PO PRN (18:25)
[2021-02-20] MEDS ORDERED: traZODone 50 MG TAB PO PRN (18:25)
[2021-02-20] MEDS ORDERED: ACETAMINOPHEN TAB 650MG DOSE (2X325MG) PO PRN (18:25)
[2021-02-20] MEDS ORDERED: MAALOX 30 ML SUSP *UDC PO PRN (18:25)
[2021-02-20] MEDS ORDERED: OLANZapine ORAL DISINTEGRATING TAB 5MG PO PRN (18:25)
[2021-02-20 20:47] VITALS: BP 122/65
[2021-02-21 08:01] VITALS: BP 124/64
[2021-02-21] MEDS: NICOTINE 21MG/24HR 1 EA TRANSDERMAL TD SCH (08:38)
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
--- NOTE | 2021-02-21 15:46 | HPEPDOC ---
General Date of Admission Feb 20, 2021 at 18:25 Date of Service: Feb 21, 2021 Chief Complaint The patient is a 35-year-old male admitted with a reason for visit of Unspecified Psychotic Disorder. Source: Patient Exam Limitations: No limitations History of Present Illness Patient is 35 years old male with past medical history schizophrenia of presents to the hospital with psychosis. The patient reportedly went to the [facility] which is just past a person's property, who called the police. When the police came, he jumped into the river and he was rescued and brought to the hospital. During my interview patient denied fever, chills, nausea, vomiting, chest pain, abdominal pain, diarrhea or dysuria Home Medications No Active Prescriptions or Reported Meds Allergies Coded Allergies: FRUIT (Verified Allergy, Mild, mouth itching, 10/20/17) Past Medical History Medical History schizophrenia Family History I personally reviewed family history and found not pertinent Social History * Smoker: current smoker Alcohol: Denies Drugs: marijuana A-FIB/CHADSVASC A-FIB History Current/History of A-Fib/PAF?: No Current PO Anticoag Therapy: No Review of Systems Constitutional: Denies: Chills, Fever Eyes: Denies: Pain ENT: Denies: Head Aches Skin: Denies: Rash Pulmonary: Denies: Dyspnea Cardiovascular: Denies: Chest Pain Gastrointestinal: Denies: Nausea Genitourinary: Denies: Dysuria Hematologic: Denies: Bruising Endocrine: Denies: Polydipsia Musculoskeletal: Denies: Neck Pain Neurological: Denies: Weakness Psych: Denies: Thoughts of Self Harm Physical Examination General Exam: Positive: Alert, Cooperative Eye Exam: Positive: PERRLA ENT Exam: Positive: Atraumatic Neck Exam: Positive: Supple; Negative: JVD Chest Exam: Positive: Clear to auscultation Heart Exam: Positive: Rate Normal Telemetry: Positive: No significant arrhythmia Abdomen Exam: Positive: Normal bowel sounds Extremity Exam: Negative: Clubbing Skin Exam: Positive: Nl turgor and temperature Neuro Exam: Positive: Strength at 5/5 X4 ext Psych Exam: Positive: Oriented x 3 Vital Signs Vital Signs Date Time Temp Pulse Resp B/P (MAP) Pulse Ox O2 Delivery O2 Flow Rate FiO2 02/21/21 08:06 Room Air 02/21/21 08:01 98.6 63 20 124/64 (84) 99 Assessment/Plan Patient is 35 years old male with past medical history schizophrenia of presents to the hospital with psychosis. The patient reportedly went to the [facility] which is just past a person's property, who called the police. When the police came, he jumped into the river and he was rescued and brought to the hospital. During my interview patient denied fever, chills, nausea, vomiting, chest pain, abdominal pain, diarrhea or dysuria Problems (1) Acute psychosis Status: Acute Problem Text: Secondary to schizophrenia, paranoid type Defer treatment to psych team Plan / VTE VTE Prophylaxis Ordered?: No VTE Exclusion Mechanical Proph: Low Risk for VTE RUBY COX DO Feb 21, 2021 15:46
[2021-02-21 17:00] VITALS: BP 136/61
[2021-02-21] MEDS ORDERED: OLANZapine 5 MG TAB PO SCH ×2 (21:00)
[2021-02-22 06:00] VITALS: BP 107/61
[2021-02-22] MEDS: NICOTINE 21MG/24HR 1 EA TRANSDERMAL TD SCH (09:00)
--- NOTE | 2021-02-22 14:06 | MHIPN ---
[facility] PROGRESS NOTE DATE: 02/22/2021 CHIEF COMPLAINT: "I did not sleep well and I'm tired." SUBJECTIVE: He is a 35-year-old male, unemployed, living with his mother and brother, was admitted because of possible suicidal attempt. He reports that he did not have any suicidal thoughts. He was scared of the police and jumped into the river. Patient has a long history of mental illness. He has been diagnosed with schizophrenia. Currently denies any auditory or visual hallucinations. However, he admits to some delusions, which are bizarre in nature. He reports he can feel the energy in the air, he can feel the forces outside, particularly when he goes near the computer. He reports the internet drains him out. MENTAL STATUS EXAMINATION: Casually dressed. Good personal hygiene. Grooming is good. Made good eye contact. Mood is mildly depressed. Affect is constricted. Psychomotor activity is normal. Thought process: Linear, goal-directed. Thought content: Has some bizarre delusions. Denied any suicidal or homicidal ideas. Perception: Denied any hallucinations. Insight and judgment are limited. Impulse control good. Memory: Immediate, remote, recent are good. VITAL SIGNS: Temperature 97.4, pulse 54, blood pressure 107/61, respiratory rate 16, pulse oximetry 100. MEDICATIONS: - olanzapine 5 mg at bedtime LABORATORY DATA: CMP, CBC within normal limits. Toxicology: Positive for cannabis. DIAGNOSIS: 1. Schizophrenia, paranoid type by history. 2. Rule out delusional disorder. PLAN: Increase Zyprexa to 10 mg at night. ESTIMATED LENGTH OF STAY: 5-6 days. TIME SPENT: 25 minutes.
[2021-02-22] MEDS ORDERED: OLANZapine 10 MG TAB PO SCH (21:00)
[2021-02-23 06:38] VITALS: BP 115/57
[2021-02-23] MEDS: NICOTINE 21MG/24HR 1 EA TRANSDERMAL TD SCH (09:00)
--- NOTE | 2021-02-23 15:44 | MHIPNPDOC ---
[facility] Progress Note Progress Note DATE OF SERVICE: 02/23/21 SUBJECTIVE: "I did not sleep well and I was confused. OBJECTIVE: He is a 35-year-old male, unemployed, living with his mother and brother, was admitted because of possible suicidal attempt. He reports that he did not have any suicidal thoughts. He was scared of the police and jumped into the river. Patient has a long history of mental illness. He has been diagnosed with schizophrenia. Currently denies any auditory or visual hallucinations. However, he admits to some delusions, which are bizarre in nature. He reports he can feel the energy in the air, he can feel the forces outside, particularly when he goes near the computer. He reports the internet drains him out. Reports he had strange feelings that his bed was moving asked if could decrease the dose of Zyprexa. MENTAL STATUS EXAMINATION: Casually dressed. Good personal hygiene. Grooming is good. Made good eye contact. Mood is mildly depressed. Affect is constricted. Psychomotor activity is normal. Thought process: Linear, goal-directed. Thought content: Has some bizarre delusions. Denied any suicidal or homicidal ideas. Perception: Denied any hallucinations. Insight and judgment are limited. Impulse control good. Memory: Immediate, remote, recent are good. MEDICATIONS: Decrease olanzapine 5 mg at bedtime LABORATORY DATA: CMP, CBC within normal limits. Toxicology: Positive for cannabis. DIAGNOSIS: 1. Schizophrenia, paranoid type by history. 2. Rule out delusional disorder. Time spent 25 minutes Estimated length of time 4 to 5 days. Vital Signs Vital Signs Date Time Temp Pulse Resp B/P (MAP) Pulse Ox O2 Delivery O2 Flow Rate FiO2 02/23/21 12:12 Room Air 02/23/21 06:38 97.6 46 12 115/57 (89) 96 Current Medications Current Medications Medications (Trade) Dose Ordered Sig/Rigoberto Route PRN Reason Start Time Stop Time Status Last Admin Dose Admin Acetaminophen (Tylenol Tab) 650 mg Q6HP PRN PO HEADACHE or DISCOMFORT 02/20/21 18:25 Al Hydrox/Mg Hydrox/Simethicone (Mylanta) 30 ml Q4HP PRN PO HEARTBURN/INDIGESTION 02/20/21 18:25 Home Med (Med Rec Complete!) ASDIRECTED XX 02/20/21 16:20 02/20/21 16:20 DC Magnesium Hydroxide (Milk Of Magnesia) 30 ml DAILYPRN PRN PO CONSTIPATION 02/20/21 18:25 Nicotine (Nicoderm Cq 21mg) 1 patch DAILY TD 02/21/21 09:00 Olanzapine (ZyPREXA ZYDIS) 5 mg Q4HP PRN PO AGITATION 02/20/21 18:25 02/21/21 01:54 Olanzapine (ZyPREXA) 5 mg QHS PO 02/21/21 21:00 02/21/21 16:27 DC Olanzapine (ZyPREXA) 5 mg QHS PO 02/21/21 21:00 02/22/21 11:18 DC Olanzapine (ZyPREXA) 5 mg QHS PO 02/23/21 21:00 UNV Olanzapine (ZyPREXA) 10 mg QHS PO 02/22/21 21:00 02/23/21 15:34 DC 02/22/21 20:53 Trazodone HCl (Desyrel) 50 mg QHSP PRN PO INSOMNIA 02/20/21 18:25 Allergies Coded Allergies: FRUIT (Verified Allergy, Mild, mouth itching, 10/20/17) FRANCK CROW MD Feb 23, 2021 15:44
[2021-02-23 16:00] VITALS: BP 125/61
[2021-02-23] MEDS ORDERED: OLANZapine 5 MG TAB PO SCH (21:00)
[2021-02-24 07:00] VITALS: BP 154/80
[2021-02-24] MEDS: NICOTINE 21MG/24HR 1 EA TRANSDERMAL TD SCH (09:00)
--- NOTE | 2021-02-24 15:39 | MHIPNPDOC ---
[facility] Progress Note Progress Note DATE OF SERVICE: 02/24/21 SUBJECTIVE: "I did not sleep well and may be because of decreasing the dose. " I want to give a try on higher dose." OBJECTIVE: He is a 35-year-old male, unemployed, living with his mother and brother, was admitted because of possible suicide attempt. He reports that he did not have any suicidal thoughts. He was scared of the police and jumped into the river. Patient has a long history of mental illness. He has been diagnosed with schizophrenia. Currently denies any auditory or visual hallucinations. However, he admits to some delusions, which are bizarre in nature. He reports he can feel the energy in the air, he can feel the forces outside, particularly when he goes near the computer. He reports the internet drains him out. Reports clouds make him depressed . Pt currently delusional. MENTAL STATUS EXAMINATION: Casually dressed. Good personal hygiene. Grooming is good. Made good eye contact. Mood is mildly depressed. Affect is constricted. Psychomotor activity is normal. Thought process: Linear, goal-directed. Thought content: Has some bizarre delusions. Denied any suicidal or homicidal ideas. Perception: Denied any hallucinations. Insight and judgment are limited. Impulse control good. Memory: Immediate, remote, recent are good. MEDICATIONS: Increase olanzapine 15 mg at bedtime LABORATORY DATA: CMP, CBC within normal limits. Toxicology: Positive for cannabis. DIAGNOSIS: 1. Schizophrenia, paranoid type by history. 2. Rule out delusional disorder. Time spent 25 minutes Estimated length of time 4 to 5 days. Vital Signs Vital Signs Date Time Temp Pulse Resp B/P (MAP) Pulse Ox O2 Delivery O2 Flow Rate FiO2 02/24/21 09:46 Room Air 02/24/21 07:00 98.7 53 18 154/80 (104) 100 Current Medications Current Medications Medications (Trade) Dose Ordered Sig/Rigoberto Route PRN Reason Start Time Stop Time Status Last Admin Dose Admin Acetaminophen (Tylenol Tab) 650 mg Q6HP PRN PO HEADACHE or DISCOMFORT 02/20/21 18:25 Al Hydrox/Mg Hydrox/Simethicone (Mylanta) 30 ml Q4HP PRN PO HEARTBURN/INDIGESTION 02/20/21 18:25 Home Med (Med Rec Complete!) ASDIRECTED XX 02/20/21 16:20 02/20/21 16:20 DC Magnesium Hydroxide (Milk Of Magnesia) 30 ml DAILYPRN PRN PO CONSTIPATION 02/20/21 18:25 Nicotine (Nicoderm Cq 21mg) 1 patch DAILY TD 02/21/21 09:00 Olanzapine (ZyPREXA ZYDIS) 5 mg Q4HP PRN PO AGITATION 02/20/21 18:25 02/21/21 01:54 Olanzapine (ZyPREXA) 5 mg QHS PO 02/21/21 21:00 02/21/21 16:27 DC Olanzapine (ZyPREXA) 5 mg QHS PO 02/21/21 21:00 02/22/21 11:18 DC Olanzapine (ZyPREXA) 5 mg QHS PO 02/23/21 21:00 02/24/21 15:30 DC 02/23/21 20:05 Olanzapine (ZyPREXA) 10 mg QHS PO 02/22/21 21:00 02/23/21 15:34 DC 02/22/21 20:53 Olanzapine (ZyPREXA) 15 mg QHS PO 02/24/21 21:00 UNV Trazodone HCl (Desyrel) 50 mg QHSP PRN PO INSOMNIA 02/20/21 18:25 Allergies Coded Allergies: FRUIT (Verified Allergy, Mild, mouth itching, 10/20/17) FARNCK CROW MD Feb 24, 2021 15:39
[2021-02-24 16:26] VITALS: BP 123/66
[2021-02-24] MEDS: OLANZapine 5 MG TAB PO SCH (20:21)
[2021-02-24] MEDS: CIPRODEX OTIC SUSP 7.5ML AS SCH (20:52)
[2021-02-25 06:10] VITALS: BP 144/65
[2021-02-25] MEDS: NICOTINE 21MG/24HR 1 EA TRANSDERMAL TD SCH (09:00)
[2021-02-25] MEDS: CIPRODEX OTIC SUSP 7.5ML AS SCH ×2 (09:11→21:48)
--- NOTE | 2021-02-25 16:01 | MHIPNPDOC ---
[facility] Progress Note Progress Note DATE OF SERVICE: 02/25/21 SUBJECTIVE: "I did not sleep well and may be because of decreasing the dose. " I want to give a try on higher dose."you can further increase the dose." OBJECTIVE: He is a 35-year-old male, unemployed, living with his mother and brother, was admitted because of possible suicide attempt. He reports that he did not have any suicidal thoughts. He was scared of the police and jumped into the river. Patient has a long history of mental illness. He has been diagnosed with schizophrenia. Currently denies any auditory or visual hallucinations. However, he admits to some delusions, which are bizarre in nature. He reports he can feel the energy in the air, he can feel the forces outside, particularly when he goes near the computer. He reports the internet drains him out. Reports clouds make him depressed . Pt currently delusional. He put tissue in his ear due to some fixed ideas and had to go to ENT for treatment. MENTAL STATUS EXAMINATION: Casually dressed. Good personal hygiene. Grooming is good. Made good eye contact. Mood is mildly depressed. Affect is constricted. Psychomotor activity is normal. Thought process: Linear, goal-directed. Thought content: Has some bizarre delusions. Denied any suicidal or homicidal ideas. Perception: Denied any hallucinations. Insight and judgment are limited. Impulse control good. Memory: Immediate, remote, recent are good. MEDICATIONS: Increase olanzapine 15 mg at bedtime and 5 mg am LABORATORY DATA: CMP, CBC within normal limits. Toxicology: Positive for cannabis. DIAGNOSIS: 1. Schizophrenia, paranoid type by history. 2. Rule out delusional disorder. Time spent 25 minutes Estimated length of time 4 to 5 days. Vital Signs Vital Signs Date Time Temp Pulse Resp B/P (MAP) Pulse Ox O2 Delivery O2 Flow Rate FiO2 02/25/21 09:20 Room Air 02/25/21 06:10 97.0 61 16 144/65 (91) 100 Current Medications Current Medications Medications (Trade) Dose Ordered Sig/Rigoberto Route PRN Reason Start Time Stop Time Status Last Admin Dose Admin Acetaminophen (Tylenol Tab) 650 mg Q6HP PRN PO HEADACHE or DISCOMFORT 02/20/21 18:25 Al Hydrox/Mg Hydrox/Simethicone (Mylanta) 30 ml Q4HP PRN PO HEARTBURN/INDIGESTION 4/9/21 18:25 Ciprofloxacin/ Dexamethasone (Ciprodex Otic) 10 drop BID 02/24/21 21:00 03/03/21 20:59 02/25/21 09:11 Home Med (Med Rec Complete!) ASDIRECTED XX 02/20/21 16:20 02/20/21 16:20 DC Magnesium Hydroxide (Milk Of Magnesia) 30 ml DAILYPRN PRN PO CONSTIPATION 02/20/21 18:25 Nicotine (Nicoderm Cq 21mg) 1 patch DAILY TD 02/21/21 09:00 Olanzapine (ZyPREXA ZYDIS) 5 mg Q4HP PRN PO AGITATION 02/20/21 18:25 02/21/21 01:54 Olanzapine (ZyPREXA) 5 mg QHS PO 02/21/21 21:00 02/21/21 16:27 DC Olanzapine (ZyPREXA) 5 mg QHS PO 02/21/21 21:00 02/22/21 11:18 DC Olanzapine (ZyPREXA) 5 mg QHS PO 02/23/21 21:00 02/24/21 15:30 DC 02/23/21 20:05 Olanzapine (ZyPREXA) 10 mg QHS PO 02/22/21 21:00 02/23/21 15:34 DC 02/22/21 20:53 Olanzapine (ZyPREXA) 15 mg QHS PO 02/24/21 21:00 02/24/21 20:21 Trazodone HCl (Desyrel) 50 mg QHSP PRN PO INSOMNIA 02/20/21 18:25 Allergies Coded Allergies: FRUIT (Verified Allergy, Mild, mouth itching, 10/20/17) FRANCK CROW MD Feb 25, 2021 16:01
[2021-02-25] MEDS: OLANZapine 5 MG TAB PO SCH (20:18)
[2021-02-26 06:27] VITALS: BP 152/76
[2021-02-26] MEDS: NICOTINE 21MG/24HR 1 EA TRANSDERMAL TD SCH (09:00)
[2021-02-26] MEDS: CIPRODEX OTIC SUSP 7.5ML AS SCH ×2 (09:33→22:16)
[2021-02-26] MEDS: OLANZapine 5 MG TAB PO SCH ×2 (09:33→20:49)
--- NOTE | 2021-02-26 12:31 | MHIPNPDOC ---
[facility] Progress Note Progress Note DATE OF SERVICE: 02/26/21 SUBJECTIVE: "I still feel medications don't help me When they were checking vitals I felt electric current passing through me". OBJECTIVE: He is a 35-year-old male, unemployed, living with his mother and brother, was admitted because of possible suicide attempt. He reports that he did not have any suicidal thoughts. He was scared of the police and jumped into the river. Patient has a long history of mental illness. He has been diagnosed with schizophrenia. Currently denies any auditory or visual hallucinations. However, he admits to some delusions, which are bizarre in nature. He reports he can feel the energy in the air, he can feel the forces outside, particularly when he goes near the computer. He reports the internet drains him out. Reports clouds make him depressed . Pt currently delusional. He put tissue in his ear due to some fixed ideas and had to go to ENT for treatment. Continues to have bizarre delusions. MENTAL STATUS EXAMINATION: Casually dressed. Good personal hygiene. Grooming is good. Made good eye contact. Mood is mildly depressed. Affect is constricted. Psychomotor activity is normal. Thought process: Linear, goal-directed. Thought content: Has some bizarre delusions. Denied any suicidal or homicidal ideas. Perception: Denied any hallucinations. Insight and judgment are limited. Impulse control good. Memory: Immediate, remote, recent are good. MEDICATIONS: Increase olanzapine 15 mg at bedtime and 5 mg am LABORATORY DATA: CMP, CBC within normal limits. Toxicology: Positive for cannabis. DIAGNOSIS: 1. Schizophrenia, paranoid type by history. 2. Rule out delusional disorder. Time spent 25 minutes Estimated length of time 4 to 5 days. Vital Signs Vital Signs Date Time Temp Pulse Resp B/P (MAP) Pulse Ox O2 Delivery O2 Flow Rate FiO2 02/26/21 06:27 97.0 61 18 152/76 (101) 98 Room Air Current Medications Current Medications Medications (Trade) Dose Ordered Sig/Rigoberto Route PRN Reason Start Time Stop Time Status Last Admin Dose Admin Acetaminophen (Tylenol Tab) 650 mg Q6HP PRN PO HEADACHE or DISCOMFORT 02/20/21 18:25 Al Hydrox/Mg Hydrox/Simethicone (Mylanta) 30 ml Q4HP PRN PO HEARTBURN/INDIGESTION 02/20/21 18:25 Ciprofloxacin/ Dexamethasone (Ciprodex Otic) 10 drop BID 02/24/21 21:00 03/03/21 20:59 02/26/21 09:33 Home Med (Med Rec Complete!) ASDIRECTED XX 02/20/21 16:20 02/20/21 16:20 DC Magnesium Hydroxide (Milk Of Magnesia) 30 ml DAILYPRN PRN PO CONSTIPATION 02/20/21 18:25 Nicotine (Nicoderm Cq 21mg) 1 patch DAILY TD 02/21/21 09:00 Olanzapine (ZyPREXA ZYDIS) 5 mg Q4HP PRN PO AGITATION 02/20/21 18:25 02/21/21 01:54 Olanzapine (ZyPREXA) 5 mg DAILY PO 02/26/21 09:00 02/26/21 09:33 Olanzapine (ZyPREXA) 5 mg QHS PO 02/21/21 21:00 02/21/21 16:27 DC Olanzapine (ZyPREXA) 5 mg QHS PO 02/21/21 21:00 02/22/21 11:18 DC Olanzapine (ZyPREXA) 5 mg QHS PO 02/23/21 21:00 02/24/21 15:30 DC 02/23/21 20:05 Olanzapine (ZyPREXA) 10 mg QHS PO 02/22/21 21:00 02/23/21 15:34 DC 02/22/21 20:53 Olanzapine (ZyPREXA) 15 mg QHS PO 02/24/21 21:00 02/25/21 20:18 Trazodone HCl (Desyrel) 50 mg QHSP PRN PO INSOMNIA 02/20/21 18:25 Allergies Coded Allergies: FRUIT (Verified Allergy, Mild, mouth itching, 10/20/17) FRANCK CROW MD Feb 26, 2021 12:31
[2021-02-26 18:28] VITALS: BP 149/64
[2021-02-27] MEDS: NICOTINE 21MG/24HR 1 EA TRANSDERMAL TD SCH (09:00)
[2021-02-27] MEDS: OLANZapine 5 MG TAB PO SCH (09:29)
[2021-02-27] MEDS: CIPRODEX OTIC SUSP 7.5ML AS SCH ×2 (09:29→20:57)
--- NOTE | 2021-02-27 15:00 | MHIPNPDOC ---
[facility] Progress Note Progress Note DATE OF SERVICE: 02/27/21 SUBJECTIVE: "I still feel medications don't help me When they were checking vitals I felt electric current passing through me".Forces of energy affecting me. OBJECTIVE: He is a 35-year-old male, unemployed, living with his mother and brother, was admitted because of possible suicide attempt. He reports that he did not have any suicidal thoughts. He was scared of the police and jumped into the river. Patient has a long history of mental illness. He has been diagnosed with schizophrenia. Currently denies any auditory or visual hallucinations. However, he admits to some delusions, which are bizarre in nature. He reports he can feel the energy in the air, he can feel the forces outside, particularly when he goes near the computer. He reports the internet drains him out. Reports clouds make him depressed . Pt currently delusional. He put tissue in his ear due to some fixed ideas and had to go to ENT for treatment. Continues to have bizarre delusions.Agreed for changes of medication MENTAL STATUS EXAMINATION: Casually dressed. Good personal hygiene. Grooming is good. Made good eye contact. Mood is mildly depressed. Affect is constricted. Psychomotor activity is normal. Thought process: Linear, goal-directed. Thought content: Has some bizarre delusions. Denied any suicidal or homicidal ideas. Perception: Denied any hallucinations. Insight and judgment are limited. Impulse control good. Memory: Immediate, remote, recent are good. MEDICATIONS: (Change) Zyprexa 10 mg HS and Risperdal 1 mg HS LABORATORY DATA: CMP, CBC within normal limits. Toxicology: Positive for cannabis. DIAGNOSIS: 1. Schizophrenia, paranoid type by history. 2. Rule out delusional disorder. Time spent 25 minutes Vital Signs Vital Signs Date Time Temp Pulse Resp B/P (MAP) Pulse Ox O2 Delivery O2 Flow Rate FiO2 02/26/21 18:28 96.8 57 18 149/64 (92) 02/26/21 06:27 98 Room Air Current Medications Current Medications Medications (Trade) Dose Ordered Sig/Rigoberto Route PRN Reason Start Time Stop Time Status Last Admin Dose Admin Acetaminophen (Tylenol Tab) 650 mg Q6HP PRN PO HEADACHE or DISCOMFORT 02/20/21 18:25 Al Hydrox/Mg Hydrox/Simethicone (Mylanta) 30 ml Q4HP PRN PO HEARTBURN/INDIGESTION 02/20/21 18:25 Ciprofloxacin/ Dexamethasone (Ciprodex Otic) 10 drop BID 02/24/21 21:00 03/03/21 20:59 02/27/21 09:29 Home Med (Med Rec Complete!) ASDIRECTED XX 02/20/21 16:20 02/20/21 16:20 DC Magnesium Hydroxide (Milk Of Magnesia) 30 ml DAILYPRN PRN PO CONSTIPATION 02/20/21 18:25 Nicotine (Nicoderm Cq 21mg) 1 patch DAILY TD 02/21/21 09:00 Olanzapine (ZyPREXA ZYDIS) 5 mg Q4HP PRN PO AGITATION 02/20/21 18:25 02/21/21 01:54 Olanzapine (ZyPREXA) 5 mg DAILY PO 02/26/21 09:00 02/27/21 09:29 Olanzapine (ZyPREXA) 5 mg QHS PO 02/21/21 21:00 02/21/21 16:27 DC Olanzapine (ZyPREXA) 5 mg QHS PO 02/21/21 21:00 02/22/21 11:18 DC Olanzapine (ZyPREXA) 5 mg QHS PO 02/23/21 21:00 02/24/21 15:30 DC 02/23/21 20:05 Olanzapine (ZyPREXA) 10 mg QHS PO 02/22/21 21:00 02/23/21 15:34 DC 02/22/21 20:53 Olanzapine (ZyPREXA) 10 mg QHS PO 02/27/21 21:00 UNV Olanzapine (ZyPREXA) 15 mg QHS PO 02/24/21 21:00 02/27/21 14:42 DC 02/26/21 20:49 Risperidone (RisperDAL) 1 mg QHS PO 02/27/21 21:00 UNV Trazodone HCl (Desyrel) 50 mg QHSP PRN PO INSOMNIA 02/20/21 18:25 Allergies Coded Allergies: FRUIT (Verified Allergy, Mild, mouth itching, 10/20/17) FRANCK CROW MD Feb 27, 2021 15:00
[2021-02-27 16:12] VITALS: BP 131/63
[2021-02-27] MEDS: OLANZapine 10 MG TAB PO SCH (20:57)
[2021-02-27] MEDS: risperiDONE 1 MG TAB PO SCH (20:57)
[2021-02-28 07:36] VITALS: BP 139/72
[2021-02-28] MEDS: NICOTINE 21MG/24HR 1 EA TRANSDERMAL TD SCH (08:20)
[2021-02-28] MEDS: CIPRODEX OTIC SUSP 7.5ML AS SCH ×2 (08:21→20:56)
[2021-02-28 16:08] VITALS: BP 127/59
[2021-02-28] MEDS: OLANZapine 10 MG TAB PO SCH (20:56)
[2021-02-28] MEDS: risperiDONE 1 MG TAB PO SCH (20:57)
[2021-03-01] MEDS: NICOTINE 21MG/24HR 1 EA TRANSDERMAL TD SCH (08:03)
[2021-03-01] MEDS: CIPRODEX OTIC SUSP 7.5ML AS SCH ×2 (08:03→21:00)
[2021-03-01 09:00] VITALS: BP 149/72
[2021-03-01] MEDS: risperiDONE 1 MG TAB PO SCH (20:28)
[2021-03-01] MEDS: OLANZapine 10 MG TAB PO SCH (20:28)
[2021-03-02 06:23] VITALS: BP 132/62
[2021-03-02] MEDS: NICOTINE 21MG/24HR 1 EA TRANSDERMAL TD SCH (08:39)
[2021-03-02] MEDS: CIPRODEX OTIC SUSP 7.5ML AS SCH ×2 (08:40→21:02)
--- NOTE | 2021-03-02 14:13 | MHIPNPDOC ---
[facility] Progress Note Progress Note DATE OF SERVICE: 03/02/21 SUBJECTIVE: " Medications partially helping me " OBJECTIVE: He is a 35-year-old male, unemployed, living with his mother and brother, was admitted because of possible suicide attempt. He reports that he did not have any suicidal thoughts. He was scared of the police and jumped into the river. Patient has a long history of mental illness. He has been diagnosed with schizophrenia. Currently denies any auditory or visual hallucinations. However, he admits to some delusions, which are bizarre in nature. He reports he can feel the energy in the air, he can feel the forces outside, particularly when he goes near the computer. He reports the internet drains him out. Reports clouds make him depressed . Pt currently delusional. He put tissue in his ear due to some fixed ideas and had to go to ENT for treatment. Continues to have bizarre delusions.Report Risperdal is helping him , but did not want it to be raised. MENTAL STATUS EXAMINATION: Casually dressed. Good personal hygiene. Grooming is good. Made good eye contact. Mood is mildly depressed. Affect is constricted. Psychomotor activity is normal. Thought process: Linear, goal-directed. Thought content: Has some bizarre delusions. Denied any suicidal or homicidal ideas. Perception: Denied any hallucinations. Insight and judgment are limited. Impulse control good. Memory: Immediate, remote, recent are good. MEDICATIONS: Zyprexa 10 mg HS and Risperdal 1 mg HS LABORATORY DATA: CMP, CBC within normal limits. Toxicology: Positive for cannabis. DIAGNOSIS: 1. Schizophrenia, paranoid type by history. 2. Rule out delusional disorder. Pt is stable , though he has some residual delusions.He can be discharged tomorrow. Time spent 25 minutes Vital Signs Vital Signs Date Time Temp Pulse Resp B/P (MAP) Pulse Ox O2 Delivery O2 Flow Rate FiO2 03/02/21 06:23 97.8 94 16 132/62 (85) 98 Room Air Current Medications Current Medications Medications (Trade) Dose Ordered Sig/Rigoberto Route PRN Reason Start Time Stop Time Status Last Admin Dose Admin Acetaminophen (Tylenol Tab) 650 mg Q6HP PRN PO HEADACHE or DISCOMFORT 02/20/21 18:25 Al Hydrox/Mg Hydrox/Simethicone (Mylanta) 30 ml Q4HP PRN PO HEARTBURN/INDIGESTION 02/20/21 18:25 Ciprofloxacin/ Dexamethasone (Ciprodex Otic) 10 drop BID 02/24/21 21:00 03/03/21 20:59 03/02/21 08:40 Home Med (Med Rec Complete!) ASDIRECTED XX 02/20/21 16:20 02/20/21 16:20 DC Magnesium Hydroxide (Milk Of Magnesia) 30 ml DAILYPRN PRN PO CONSTIPATION 02/20/21 18:25 Nicotine (Nicoderm Cq 21mg) 1 patch DAILY TD 02/21/21 09:00 Olanzapine (ZyPREXA ZYDIS) 5 mg Q4HP PRN PO AGITATION 02/20/21 18:25 02/21/21 01:54 Olanzapine (ZyPREXA) 5 mg DAILY PO 02/26/21 09:00 02/27/21 14:45 DC 02/27/21 09:29 Olanzapine (ZyPREXA) 5 mg QHS PO 02/21/21 21:00 02/21/21 16:27 DC Olanzapine (ZyPREXA) 5 mg QHS PO 02/21/21 21:00 02/22/21 11:18 DC Olanzapine (ZyPREXA) 5 mg QHS PO 02/23/21 21:00 02/24/21 15:30 DC 02/23/21 20:05 Olanzapine (ZyPREXA) 10 mg QHS PO 02/22/21 21:00 02/23/21 15:34 DC 02/22/21 20:53 Olanzapine (ZyPREXA) 10 mg QHS PO 02/27/21 21:00 03/01/21 20:28 Olanzapine (ZyPREXA) 15 mg QHS PO 02/24/21 21:00 02/27/21 14:42 DC 02/26/21 20:49 Risperidone (RisperDAL) 1 mg QHS PO 02/27/21 21:00 03/01/21 20:28 Trazodone HCl (Desyrel) 50 mg QHSP PRN PO INSOMNIA 02/20/21 18:25 Allergies Coded Allergies: FRUIT (Verified Allergy, Mild, mouth itching, 10/20/17) FRANCK CROW MD Mar 02, 2021 14:12
[2021-03-02 18:05] VITALS: BP 134/64
[2021-03-02] MEDS: OLANZapine 10 MG TAB PO SCH (21:01)
[2021-03-02] MEDS: risperiDONE 1 MG TAB PO SCH (21:01)
[2021-03-03 07:10] VITALS: BP 134/65
[2021-03-03] MEDS ORDERED: RISP-8 PO (08:00)
[2021-03-03] MEDS ORDERED: OLAN10TA2 PO (08:00)
[2021-03-03] MEDS: NICOTINE 21MG/24HR 1 EA TRANSDERMAL TD SCH (08:53)
[2021-03-03] MEDS: CIPRODEX OTIC SUSP 7.5ML AS SCH (09:32)
--- NOTE | 2021-03-03 10:49 | MHDS ---
"[facility] DISCHARGE SUMMARY DATE OF ADMISSION: 02/20/2021 DATE OF DISCHARGE: 03/03/2021 DIAGNOSIS: Psychotic disorder unspecified, rule out schizophrenia paranoid type, rule out delusional disorder. IDENTYFING DATA: The patient is a 35-year-old unemployed male, living with his mother and brother, who was admitted because of possible suicide attempt. He reportedly tried to jump into the river. HISTORY OF PRESENT ILLNESS/PAST PSYCHIATRIC HISTORY/MEDICAL HISTORY/SUBSTANCE ABUSE HISTORY/PERSONAL HISTORY: For details, please refer to the initial evaluation. COURSE IN THE HOSPITAL: Patient initially was depressed and was delusional. Patient was provided with individual, group and milieu therapy. He was placed on Zyprexa initially and the medication was titrated upwards. Patient continued to have his delusions. He was talking about energy and a weird feeling of electricity in his body, however, he was placed on Risperidone. I was trying to taper off his Zyprexa. Patient made some improvement. His delusions became less severe, however, he continued to have some residual delusions. Patient was insisting upon going home since patient was not a danger to self or others. It was decided by the team that he could be discharged. MENTAL STATUS EXAMINATION: Casually dressed with good personal hygiene. Grooming is fair. Made good eye contact. Psychomotor activity is normal. Mood is euthymic. Affect is mood congruent. Denied auditory or visual hallucinations. Denied suicidal/homicidal ideas. Patient was stable at the time of discharge. His Insight and judgment were fair. Memory immediate, remote, recent were good. VITAL SIGNS: Temperature 98.4, pulse 81, respiratory rate 18, blood pressure 134/65, pulse oximetry 99%.| LABS: CBC within normal limits. CMP within normal limits. TOXICOLOGY: He was positive for cannabis. DISCHARGE MEDICATIONS: 1. Zyprexa 10 mg at night. 2. Risperidone 1 mg at night. PLAN: The plan is to taper off Zyprexa and increase Risperidone. . He will be followed-up at [facility]. TIME SPENT: Less than 30 minutes. MTDD"
[2021-03-05] MEDS ORDERED: RISP-8 PO (12:37)
[2021-03-05] MEDS ORDERED: OLAN10TA2 PO (12:37)
== END 2021-03-03 10:53 | disposition home or self-care (01) | DRG 750 ==
LOC: M ED 13:16 → EDBD 13:16 → M ED INP 18:25 → M PSY 20:41
PROVIDERS: ADMIT Psychiatry & Neurology Psychiatry; ATTEND Psychiatry & Neurology Psychiatry
DX: F20.0 Paranoid schizophrenia (principal); F22 Delusional disorders; R45.851 Suicidal ideations; Z91.018 Allergy to other foods